=== PATIENT | male | born 1960 | race Caucasian/White ===

== ENCOUNTER 2018-03-06 02:50 | Inpatient (IN) | payer OTHER ==
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
[2018-03-06] MEDS ORDERED: morphine SULFATE 4 MG/ML VIAL ONE ×2 (04:51→09:54)
[2018-03-06] MEDS ORDERED: morphine CARPU-JECT 4 MG/1 ML DISP.SYRIN IVPUSH ONE (04:52)
[2018-03-06 05:23] LABS: EOS % 0.5 % (0-4.5); HEMOGLOBIN 12.8 GM/dL (11.7-16.9); LYMPH % 16.7 % (8-40); MCH 36.2 pg (25.7-33.7); MCHC 35.5 g/dl (32.0-35.9); MEAN CELL VOLUME 102.2 fl (80-96); MEAN PLT VOLUME 8.5 fl (7.5-11.1); MONO % 7.7 % (3.8-10.2); NEUT % 74.1 % (42.8-82.8); PLATELET COUNT 93 K/MM3 (134-434); RBC 3.52 M/mm3 (4.00-5.60); RDW 14.8 % (11.9-15.9); WHITE BLOOD COUNT 3.7 K/mm3 (4.0-10.0)
[2018-03-06 05:43] LABS: INR 1.36 (0.82-1.09); PROTHROMBIN TIME (PATIENT) 15.4 SEC (9.7-13.0)
[2018-03-06] MEDS ORDERED: TETANUS AND DIPHTHERIA TOXOID 0.5 ML DISP.SYRIN IM ONE (05:44)
[2018-03-06 05:48] LABS: ALBUMIN 2.5 g/dl (3.4-5.0); ALK PHOS 100 U/L (45-117); ANION GAP 8 (8-16); BILIRUBIN,TOTAL 1.3 mg/dL (0.2-1.0); BLOOD UREA NITROGEN 8 mg/dL (7-18); CALCIUM 7.7 mg/dL (8.5-10.1); CHLORIDE 110 mmol/L (98-107); CO2 25 mmol/L (21-32); CREATININE 0.7 mg/dL (0.7-1.3); GLUCOSE,RANDOM 111 mg/dL (74-106); POTASSIUM 3.9 mmol/L (3.5-5.1); SODIUM 143 mmol/L (136-145); TOT PROT 9.3 g/dl (6.4-8.2)
[2018-03-06 05:49] LABS: SGOT/AST 163 U/L (15-37); SGPT/ALT 68 U/L (12-78)
[2018-03-06] MEDS ORDERED: morphine SULFATE 4 MG/ML VIAL IVPUSH PRN (07:01)
[2018-03-06] MEDS ORDERED: FOLIC ACID INJECTION - 1 MG, THIAMINE HCL 100 MG, MULTIVIT INJECTION ADULT 10 ML in SOD... IVPB ONE (07:04)
[2018-03-06] MEDS ORDERED: PANTOPRAZOLE SODIUM 40 MG VIAL IVPUSH ONE (07:04)
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
[2018-03-06] MEDS ORDERED: PANTOPRAZOLE SODIUM 40 MG/100 ML BAG IVPB ONE (08:18)
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
--- NOTE | 2018-03-06 09:01 | PDOC ---
*Physical Exam - Vital Signs Last Vital Signs Temp Pulse Resp BP Pulse Ox 98.7 F 84 22 114/78 96 03/06/18 02:56 03/06/18 02:56 03/06/18 02:56 03/06/18 02:56 03/06/18 02:56 ED Treatment Course - LABORATORY CBC & Chemistry Diagram: 03/06/18 05:12 03/06/18 05:12 - ADDITIONAL ORDERS Additional order review: Laboratory Results 03/06/18 03/06/18 03/06/18 05:23 05:23 05:12 PT with INR 15.40 H INR 1.36 H Sodium 143 Potassium 3.9 Chloride 110 H Carbon Dioxide 25 Anion Gap 8 BUN 8 Creatinine 0.7 Creat Clearance w eGFR > 60 Random Glucose 111 H Calcium 7.7 L Total Bilirubin 1.3 H AST 163 H ALT 68 Alkaline Phosphatase 100 Total Protein 9.3 H Albumin 2.5 L Alcohol, Quantitative Blood Type A POSITIVE Antibody Screen Negative 03/06/18 05:04 PT with INR INR Sodium Potassium Chloride Carbon Dioxide Anion Gap BUN Creatinine Creat Clearance w eGFR Random Glucose Calcium Total Bilirubin AST ALT Alkaline Phosphatase Total Protein Albumin Alcohol, Quantitative 366.90 H* Blood Type Antibody Screen 03/06/18 05:12 RBC 3.52 L MCV 102.2 H MCHC 35.5 RDW 14.8 MPV 8.5 Neutrophils % 74.1 Lymphocytes % 16.7 Monocytes % 7.7 Eosinophils % 0.5 Basophils % 1.0 - Medications Given in the ED: ED Medications Discontinued Medications Generic Name Dose Route Start Last Admin Trade Name Freq PRN Reason Stop Dose Admin Morphine Sulfate 4 mg 03/06/18 04:52 03/06/18 05:11 Morphine Injection - IVPUSH 03/06/18 04:53 4 mg ONCE ONE Administration Pantoprazole Sodium 40 mg 03/06/18 07:04 03/06/18 08:22 Protonix Iv IVPUSH 03/06/18 07:05 40 mg ONCE ONE Administration Tetanus/Diphtheria Toxoids Adsorbed 0.5 ml 03/06/18 05:44 03/06/18 05:55 Decavac IM 03/06/18 05:45 0.5 ml .ONCE ONE Administration Medical Decision Making - Medical Decision Making 03/06/18 09:00 Patient was seen by Dr. Justice who feels patient does not require surgery for CT findings for appendicitis as patient's abdominal exam was not suggestive of appendicitis nor did he have a white count. Patient will be admitted and he will follow pt once admitted. *DC/Admit/Observation/Transfer Diagnosis at time of Disposition: Acute appendicitis Hip fracture Qualifiers: Encounter type: initial encounter Fracture type: closed Laterality: right Qualified Code(s): S72.001A - Fracture of unspecified part of neck of right femur, initial encounter for closed fracture Contusion of elbow, right Qualifiers: Encounter type: initial encounter Qualified Code(s): S50.01XA - Contusion of right elbow, initial encounter - Discharge Dispostion Condition at time of disposition: Guarded - Referrals - Patient Instructions - Post Discharge Activity
[2018-03-06] MEDS ORDERED: chlordiazePOXIDE HCL 25 MG CAPSULE PO ONE (09:05)
[2018-03-06] MEDS ORDERED: chlordiazePOXIDE HCL 25 MG CAPSULE PO PRN (09:05)
[2018-03-06] MEDS ORDERED: oxyCODONE HCL 5 MG TABLET PO PRN (09:10)
[2018-03-06 09:16] LABS: COCAINE, UR NEGATIVE ng/ml (CUTOFF=300); METHADONE, UR NEGATIVE ng/ml (CUTOFF=300); OPIATES, URI POSITIVE ng/ml (CUTOFF=300); PHENCYCLIDINE,URINE NEGATIVE ng/ml (CUTOFF=25); URINE AMPHETAMINES NEGATIVE ng/ml (CUTOFF=500); URINE BARBITURATES NEGATIVE ng/ml (CUTOFF=200); URINE BENZODIAZEPINES NEGATIVE ng/ml (CUTOFF=200)
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
[2018-03-06] MEDS ORDERED: chlordiazePOXIDE HCL 25 MG CAPSULE ONE ×2 (09:50→12:28)
[2018-03-06] MEDS: SODIUM CHLORIDE 1,000 ML IV SCH (10:12)
[2018-03-06] MEDS: morphine SULFATE 4 MG/ML VIAL IVPUSH PRN ×3 (10:12→18:00)
[2018-03-06 11:43] LABS: MAGNESIUM 1.8 mg/dL (1.8-2.4); PHOSPHOROUS 3.5 mg/dL (2.5-4.9)
[2018-03-06] MEDS: chlordiazePOXIDE HCL 25 MG CAPSULE PO SCH ×3 (12:33→22:05)
[2018-03-06] MEDS: HEPARIN NA (PORCINE) 5,000 UNITS/ML 1ML VIAL SQ SCH ×2 (14:17→22:06)
--- NOTE | 2018-03-06 14:30 | EKG ---
Test Reason : Blood Pressure : / mmHG Vent. Rate : 114 BPM Atrial Rate : 114 BPM P-R Int : 138 ms QRS Dur : 080 ms QT Int : 338 ms P-R-T Axes : 064 026 059 degrees QTc Int : 465 ms SINUS TACHYCARDIA OTHERWISE NORMAL ECG NO PREVIOUS ECGS AVAILABLE Confirmed by MD Giuliano, Ulysses ([id number]) on 03/06/2018 2:29:55 PM Referred By: Confirmed By:Ulysses Nobles MD
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
[2018-03-06 15:44] VITALS: BMI 22.6
[2018-03-06] MEDS ORDERED: PT OWN MED DRAWER 7, Y5N ONE (21:28)
[2018-03-07] MEDS: chlordiazePOXIDE HCL 25 MG CAPSULE PO SCH (05:03)
[2018-03-07] MEDS: SODIUM CHLORIDE 1,000 ML IV SCH ×2 (05:13→09:23)
[2018-03-07] MEDS: HEPARIN NA (PORCINE) 5,000 UNITS/ML 1ML VIAL SQ SCH (05:14)
[2018-03-07 08:16] LABS: BASO % 0.7 % (0-2.0); EOS % 0.3 % (0-4.5); HEMATOCRIT 31.2 % (35.4-49); LYMPH % 18.7 % (8-40); MCH 36.4 pg (25.7-33.7); MCHC 35.3 g/dl (32.0-35.9); MEAN PLT VOLUME 8.1 fl (7.5-11.1); NEUT % 68.3 % (42.8-82.8); PLATELET COUNT 58 K/MM3 (134-434); RBC 3.03 M/mm3 (4.00-5.60); RDW 14.6 % (11.9-15.9); WHITE BLOOD COUNT 4.1 K/mm3 (4.0-10.0)
[2018-03-07 08:35] LABS: CHLORIDE 107 mmol/L (98-107); POTASSIUM 3.7 mmol/L (3.5-5.1); SODIUM 140 mmol/L (136-145)
[2018-03-07 08:47] LABS: ALBUMIN 2.3 g/dl (3.4-5.0); ALK PHOS 80 U/L (45-117); ANION GAP 7 (8-16); BILIRUBIN,TOTAL 2.3 mg/dL (0.2-1.0); BLOOD UREA NITROGEN 10 mg/dL (7-18); CALCIUM 7.8 mg/dL (8.5-10.1); CO2 26 mmol/L (21-32); CREATININE 0.6 mg/dL (0.7-1.3); MAGNESIUM 1.6 mg/dL (1.8-2.4); PHOSPHOROUS 2.1 mg/dL (2.5-4.9); TOT PROT 8.2 g/dl (6.4-8.2)
[2018-03-07 08:48] LABS: GLUCOSE,RANDOM 106 mg/dL (74-106); SGOT/AST 121 U/L (15-37); SGPT/ALT 51 U/L (12-78)
[2018-03-07] MEDS ORDERED: NAPH,MB-DB/K PH,MBDB POWDER PACKET PO ONE (09:16)
[2018-03-07] MEDS ORDERED: THIAMINE HCL 100 MG TABLET (FP) PO SCH (10:00)
[2018-03-07] MEDS ORDERED: MAGNESIUM 1GM/D5W 100ML - 100 ML IVPB IVPB ONE (10:30)
[2018-03-07] MEDS: MAGNESIUM 1GM/D5W 100ML - 100 ML IVPB IVPB ONE ×2 (10:32→10:40)
--- NOTE | 2018-03-07 10:35 | EKG ---
Test Reason : Blood Pressure : / mmHG Vent. Rate : 088 BPM Atrial Rate : 088 BPM P-R Int : 136 ms QRS Dur : 088 ms QT Int : 388 ms P-R-T Axes : 063 007 026 degrees QTc Int : 469 ms NORMAL SINUS RHYTHM NORMAL ECG WHEN COMPARED WITH ECG OF 06-MAR-2018 07:08, NONSPECIFIC T WAVE ABNORMALITY NOW EVIDENT IN INFERIOR LEADS Confirmed by ULISES VERONICA MD ([id number]) on 03/07/2018 10:35:06 AM Referred By: Confirmed By:ULISES VERONICA MD
[2018-03-07] MEDS ORDERED: chlordiazePOXIDE HCL 25 MG CAPSULE PO SCH ×2 (11:00→17:00)
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
[2018-03-07] MEDS ORDERED: MIDAZOLAM HCL 2 MG/2 ML SINGLE DOSE VIAL ONE (14:21)
[2018-03-07] MEDS ORDERED: LIDOCAINE HCL/PF 2% SDV 5ML VIAL ONE (14:47)
[2018-03-07] MEDS ORDERED: PROPOFOL 20 ML ONE (14:48)
[2018-03-07] MEDS ORDERED: ceFAZolin SODIUM 1 GM VIAL ONE ×2 (14:54→22:25)
[2018-03-07] MEDS ORDERED: ceFAZolin SODIUM 1 GM VIAL IVPB ONE (14:54)
[2018-03-07] MEDS ORDERED: DEXAMETHASONE SOD PHOSPHATE 4 MG/1 ML VIAL ONE (14:57)
--- NOTE | 2018-03-07 15:24 | OP ---
Operative Note - Note: Operative Date: 03/07/18 Pre-Operative Diagnosis: R IT HIP FX Operation: R GAMMA NAIL Post-Operative Diagnosis: Same as Pre-op Surgeon: Paulie Castro Anesthesia: General Estimated Blood Loss (mls): 250 Operative Report Dictated: Yes
[2018-03-07] MEDS ORDERED: LACTATED RINGERS SOLUTION 1,000 ML IV SCH ×2 (15:30→16:21)
--- NOTE | 2018-03-07 15:53 | PN ---
Physical Exam: SUBJECTIVE: Patient seen and examined at bedside. Yesterday, at 6pm, pt c/o R hip pain and received oxycodone, morphine IVP. At time, also with fine tremors, received librium. Overnight, pt AAOx 3 , with low grade temp ~100F at 6AM. Increased to 100.8F at ~10AM. Pt for OR today with Dr. Castro - gamma nail procedure. This AM, he denied JOHNSTON, fever, chills, SOB, or changes in urinary or bowel function. Only c/o pain in R hip upon movement. OBJECTIVE: Vital Signs Period Temp Pulse Resp BP Sys/Eubanks Pulse Ox Last 24 Hr 98.9 F-100.9 F 88-98 18-20 125-142/76-85 98 GENERAL: The patient is resting in bed, awake, alert, and fully oriented, in mild distress with RLE movement. HEAD: Normal with no signs of trauma. EYES: PERRL, extraocular movements intact, sclera anicteric, conjunctiva clear. No ptosis. ENT: Ears normal, nares patent, oropharynx clear without exudates, moist mucous membranes. NECK: Trachea midline, supple. LUNGS: Breath sounds equal, clear to auscultation bilaterally, no wheezes, no crackles, no accessory muscle use. HEART: Regular rate and rhythm, S1, S2 without murmur, rub or gallop. ABDOMEN: Soft, nontender, nondistended, normoactive bowel sounds, no guarding, no rebound, no hepatosplenomegaly, no masses. EXTREMITIES: 2+ posterior tibial pulses, warm, well-perfused, no edema. +R externally rotated, shortened LE NEUROLOGICAL: Cranial nerves II through XII grossly intact. Normal speech PSYCH: Normal mood, normal affect. SKIN: Warm, dry, normal turgor, no rashes noted Laboratory Results - last 24 hr 03/07/18 03/07/18 06:30 06:30 WBC 4.1 RBC 3.03 L Hgb 11.0 L D Hct 31.2 L MCV 103.0 H MCH 36.4 H MCHC 35.3 RDW 14.6 Plt Count 58 L D MPV 8.1 Neutrophils % 68.3 Lymphocytes % 18.7 Monocytes % 12.0 H Eosinophils % 0.3 Basophils % 0.7 Sodium 140 Potassium 3.7 Chloride 107 Carbon Dioxide 26 Anion Gap 7 L BUN 10 D Creatinine 0.6 L Creat Clearance w eGFR > 60 Random Glucose 106 Calcium 7.8 L Phosphorus 2.1 L D Magnesium 1.6 L Total Bilirubin 2.3 H D AST 121 H D ALT 51 D Alkaline Phosphatase 80 Total Protein 8.2 Albumin 2.3 L Active Medications Generic Name Dose Route Start Last Admin Trade Name Freq PRN Reason Stop Dose Admin Chlordiazepoxide HCl 25 mg 03/07/18 11:00 03/07/18 10:39 Librium - PO 03/08/18 05:01 25 mg [id number] KAYLEIGH Administration Chlordiazepoxide HCl 15 mg 03/08/18 11:00 Librium - PO 03/09/18 05:01 [id number] KAYLEIGH Chlordiazepoxide HCl 25 mg 03/06/18 09:05 Librium - PO 03/09/18 09:04 Q4H PRN WITHDRAWAL(CONT SUBST) Fentanyl 50 mcg 03/07/18 15:34 Sublimaze Injection - IVPUSH Q5M PRN PAIN-PACU ORDER X 4 DOSES ONLY Sodium Chloride 1,000 mls @ 75 mls/hr 03/06/18 09:15 03/07/18 09:23 Normal Saline - IV Not Given ASDIR [facility] Cefazolin Sodium 1 gm in 50 mls @ 100 mls/hr 03/07/18 23:00 Ancef 1 Gm Premixed Ivpb - IVPB 03/08/18 07:29 Q8H [facility] Lactated Ringer's 1,000 mls @ 75 mls/hr 03/07/18 15:30 Lactated Ringers Solution IV ASDIR [facility] Morphine Sulfate 4 mg 03/06/18 09:12 03/06/18 18:00 Morphine Sulfate IVPUSH 4 mg Q3H PRN Administration PAIN LEVEL 7 - 10 Oxycodone HCl 5 mg 03/06/18 09:10 03/06/18 13:20 Roxicodone - PO 5 mg Q4H PRN Administration PAIN LEVEL 1-5 Thiamine HCl 100 mg 03/07/18 10:00 03/07/18 10:39 Vitamin B1 - PO Not Given DAILY [facility] ASSESSMENT/PLAN: 57 y/o M with chronic EtOH abse, who presented to the ED after falling on his R hip. Pt was found to have an acute R femoral neck fx. #R displaced intertrochanteric fx after trauma -with prolonged Qtc 469 (latest; 03/07) - discussed with anesthesia team -Pt for surgery today with Dr. Castro- R IM gamma nail (PO Day 0). Has been completed -Continue to hold a/c after procedure (continue DVT PPX: L SCD) -Post op abx for 24 hrs: ancef 1gm q8h -IVF LR 75 cc/hr -Pain control: morphine 4mg IVP q3h PRN, roxicodone 5mg PO q4h PRN -NPO -Pt post op check tomorrow - OOB, flatus, etc. #Incidental dilated appendix (1.2cm) w/o abdominal sx -no need for surgical intervention at this time -will need surgical and GI f/u on d/c -will need repeat imaging as outpatient #alcohol intoxication -without current signs of withdrawal, CIWA 0 -continue to check Mg, Phosph -librium protocol to finish 03/09; currently receiving librium 25mg PO q6h -continue thiamine 100mg PO qd, folic 1mg PO qd #transaminitis -AST 121 (from 163), improving -monitor CMP #macrocytic anemia - possibly 2/2 nutritional deficit from chronic alcohol abuse -F/u folic acid level -F/u b12 #thrombocytopenia 2/2 BM suppression from chronic alc abuse -continue to monitor -level today 58k -avoid hep SQ #Hyphosphatemia -2.1; has been repleted with 1 pkt neutra-phosph #Hypomagnesemia -1.6; has been repleted with mg 1g #F/E/N IV LR 75 cc/hr Continue to monitor lytes, specifically phosph, Mg NPO currently #PPX DVT: L SCD do not use a/c after surgery and d/t thrombocytopenia #Dispo continued med-surg monitoring, post-op care Visit type - Emergency Visit Emergency Visit: No - New Patient This patient is new to me today: Yes Date on this admission: 03/07/18 - Critical Care Critical Care patient: No
[2018-03-07] MEDS ORDERED: chlordiazePOXIDE HCL 25 MG CAPSULE PO PRN (16:21)
[2018-03-07] MEDS ORDERED: FOLIC ACID 5 MG/1 ML SQ SCH ×2 (16:30)
--- NOTE | 2018-03-07 19:54 | SPEC ---
DATE OF OPERATION: 03/07/2018 PREOPERATIVE DIAGNOSIS: Right intertrochanteric hip fracture. POSTOPERATIVE DIAGNOSIS: Right intertrochanteric hip fracture. PROCEDURE: Right Gamma nailing. SURGICAL ATTENDING: Mariah Castro MD LOFTSMAN/WOMAN: KRYSTINA Morales ANESTHESIA: General with LMA. CLOSURE: A short Gamma nail with appropriate interlocking screws, 0 Vicryl fascia, 2-0 subcutaneous, luís to skin. ESTIMATED BLOOD LOSS: Approximately 250 mL. COMPLICATIONS: None. CONDITION: To Recovery in stable condition. DESCRIPTION OF THE PROCEDURE: The patient was taken to the operating room on March 07, 2018. IV Kefzol was administered prophylactically prior to the case. Anesthesia was administered by the anesthesiologist. The patient was then fastened to the fracture table with all prominences well padded. Excellent reduction of the fracture was confirmed in AP and lateral plane by use of fluoroscopy. The right hip area was then prepped and draped in the usual sterile fashion by use of a shower curtain. A small 2-cm longitudinal incision over the tip of the greater trochanter was incised, hemostasis achieved using Bovie cautery. Sharp dissection was carried through the fascia. A guidewire was drilled from the tip of the greater trochanter into the intramedullary canal past the fracture. This was directed by fluoroscopy in both the AP and lateral plane. This was overreamed with a proximal reamer. A short Gamma nail was then malleted down into place. Using the outrigger and a small stab incision laterally, a guidewire was drilled from the lateral aspect of the femur, through the reji, through the neck into the femoral head. Proper placement was confirmed in the AP and lateral plane by using the image intensifier. The guidewire was measured for length, reamed with a triple reamer, and then screwed with the appropriate-sized lag screw. With the traction removed, the compression device was used to compress the fracture. A set screw was placed from above in the dynamic fashion. Again using the outrigger and through a small stab incision distally, a distal hole was drilled, depth gauged and screwed with the appropriate length locking screw in the static hole. The outrigger was removed. The x-rays in the AP and lateral plane revealed excellent position of the hardware with excellent reduction of the fracture. All incisions were irrigated out with copious amounts of irrigation. The fascia was closed in 0 Vicryl, 2-0 subcutaneous, and luís to the skin. Sterile pressure dressing was applied, patient awakened from anesthesia and transferred to Recovery in stable condition. No complications. Estimated blood loss approximately 250 mL. MARIAH CASTRO M.D. AMNA/[id number]
[2018-03-07] MEDS: morphine SULFATE 4 MG/ML VIAL IVPUSH PRN (20:03)
[2018-03-07] MEDS ORDERED: DEXTROSE 5%-WATER - 50 ML IVPB ONE (22:25)
[2018-03-07] MEDS: CEFAZOLIN 1 GM in DEXTROSE 5%-WATER - 50 ML IVPB SCH (22:28)
[2018-03-07] MEDS: FOLIC ACID 1 MG TABLET (FP) PO SCH (22:34)
[2018-03-07] MEDS ORDERED: CEFAZOLIN 1 GM/D5W 1 GM/50 ML BAG IVPB SCH (23:00)
[2018-03-08] MEDS ORDERED: ceFAZolin SODIUM 1 GM VIAL ONE ×2 (05:45→15:10)
[2018-03-08] MEDS ORDERED: DEXTROSE 5%-WATER - 50 ML IVPB ONE ×2 (05:45→15:11)
[2018-03-08] MEDS: chlordiazePOXIDE HCL 25 MG CAPSULE PO SCH ×2 (06:02→11:39)
[2018-03-08] MEDS: CEFAZOLIN 1 GM in DEXTROSE 5%-WATER - 50 ML IVPB SCH ×2 (06:05→15:14)
[2018-03-08] MEDS: SODIUM CHLORIDE 1,000 ML IV SCH ×3 (07:44→21:09)
[2018-03-08 09:14] LABS: CHLORIDE 108 mmol/L (98-107); POTASSIUM 3.9 mmol/L (3.5-5.1); SODIUM 140 mmol/L (136-145)
[2018-03-08 09:21] LABS: ALBUMIN 1.9 g/dl (3.4-5.0); ALK PHOS 79 U/L (45-117); ANION GAP 6 (8-16); BILIRUBIN,TOTAL 2.2 mg/dL (0.2-1.0); BLOOD UREA NITROGEN 11 mg/dL (7-18); CALCIUM 7.4 mg/dL (8.5-10.1); CO2 26 mmol/L (21-32); CREATININE 0.7 mg/dL (0.7-1.3); GLUCOSE,RANDOM 129 mg/dL (74-106); MAGNESIUM 1.8 mg/dL (1.8-2.4); PHOSPHOROUS 2.3 mg/dL (2.5-4.9); SGOT/AST 80 U/L (15-37); SGPT/ALT 38 U/L (12-78); TOT PROT 7.3 g/dl (6.4-8.2)
[2018-03-08] MEDS: THIAMINE HCL 100 MG TABLET (FP) PO SCH (10:34)
[2018-03-08] MEDS: FOLIC ACID 1 MG TABLET (FP) PO SCH (10:34)
[2018-03-08] MEDS ORDERED: chlordiazePOXIDE 5 MG CAPSULE PO SCH (11:00)
[2018-03-08] MEDS ORDERED: NAPH,MB-DB/K PH,MBDB POWDER PACKET PO ONE (12:15)
[2018-03-08] MEDS ORDERED: MAGNESIUM 1GM/D5W 100ML - 100 ML IVPB IVPB ONE (12:15)
--- NOTE | 2018-03-08 15:30 | PN ---
Progress Note (short form) - Note Progress Note: POD #1 - s/p right hip gamma nail under general anesthesia. VSS. Pt. doing well, resting comfortably in bed. No complaints. No apparent anesthetic complications noted. Continue current care.
--- NOTE | 2018-03-08 15:36 | PN ---
Progress Note (short form) - Note Progress Note: Pt seen and examined. He is doing ok, stable, but c/o pain right hip. Teri reg diet. Voiding. AVSS H/H stable RLE is grossly NVI Good ROM at the right knee, ankle, foot, toes. Dressing with mild amount of serosanguinous discharge/drainage Imp Doing well s/p right Gamma Nail Rec DC planning P.T. for ambulation, PWB RLE
[2018-03-08] MEDS: oxyCODONE HCL 5 MG TABLET PO PRN (15:39)
--- NOTE | 2018-03-08 16:20 | PN ---
Physical Exam: SUBJECTIVE: Patient seen and examined at bedside. Overnight, R hip dressing with drainage. Today pt confused, asking which day of the week it was for orientation. Tolerating PO meds, regular diet. Voiding freely. Tremulous in upper extremities. Denies JOHNSTON, fever, chills, SOB, or changes in urinary function. OBJECTIVE: Vital Signs Period Temp Pulse Resp BP Sys/[place]anks Pulse Ox Last 24 Hr 98.0 F-99.2 F 78-103 15-20 103-146/70-98 96-99 GENERAL: The patient is confused ; AAO x2 , in no acute distress. HEAD: Normal with no signs of trauma. EYES: PERRL, extraocular movements intact, sclera anicteric, conjunctiva clear. ENT: Ears normal, nares patent NECK: Trachea midline, supple. LUNGS: Breath sounds equal, clear to auscultation bilaterally, no wheezes, no crackles, no accessory muscle use. HEART: Regular rate and rhythm, S1, S2 without murmur, rub or gallop. ABDOMEN: Soft, nontender, nondistended, normoactive bowel sounds, no guarding, no rebound EXTREMITIES: 2+ posterior tibial pulses, no edema. + RLE - surgical site with serosanguineous drainage, clean without erythema and edema surrounding area NEUROLOGICAL: Cranial nerves II through XII appear to be grossly intact. Normal speech PSYCH: Normal mood, normal affect. SKIN: Warm, dry, normal turgor Laboratory Results - last 24 hr 03/07/18 03/07/18 03/08/18 06:30 06:30 07:45 Sodium 140 Potassium 3.9 Chloride 108 H Carbon Dioxide 26 Anion Gap 6 L BUN 11 Creatinine 0.7 Creat Clearance w eGFR > 60 Random Glucose 129 H D Calcium 7.4 L Phosphorus 2.3 L Magnesium 1.8 Total Bilirubin 2.2 H AST 80 H D ALT 38 D Alkaline Phosphatase 79 Total Protein 7.3 Albumin 1.9 L Vitamin B12 785 Serum Folate 10 Active Medications Generic Name Dose Route Start Last Admin Trade Name Freq PRN Reason Stop Dose Admin Chlordiazepoxide HCl 25 mg 03/07/18 16:21 Librium - PO 03/09/18 09:04 Q4H PRN WITHDRAWAL(CONT SUBST) Chlordiazepoxide HCl 15 mg 03/08/18 17:00 Librium - PO 03/09/18 11:01 [id number] KAYLEIGH Fentanyl 50 mcg 03/07/18 15:34 Sublimaze Injection - IVPUSH Q5M PRN PAIN-PACU ORDER X 4 DOSES ONLY Folic Acid 1 mg 03/07/18 16:30 03/08/18 10:34 Folic Acid - PO 1 mg DAILY KAYLEIGH Administration Cefazolin Sodium 1 gm/ 50 mls @ 100 mls/hr 03/07/18 23:00 03/08/18 15:14 Dextrose IVPB 03/08/18 22:59 100 mls/hr Q8H KAYLEIGH Administration Sodium Chloride 1,000 mls @ 75 mls/hr 03/07/18 16:21 03/08/18 07:44 Normal Saline - IV 75 mls/hr ASDIR KAYLEIGH Administration Morphine Sulfate 4 mg 03/07/18 16:21 03/07/18 20:03 Morphine Sulfate IVPUSH 4 mg Q3H PRN Administration PAIN LEVEL 7 - 10 Oxycodone HCl 5 mg 03/07/18 16:21 03/08/18 15:39 Roxicodone - PO 5 mg Q4H PRN Administration PAIN LEVEL 1-5 Thiamine HCl 100 mg 03/08/18 10:00 03/08/18 10:34 Vitamin B1 - PO 100 mg DAILY KAYLEIGH Administration ASSESSMENT/PLAN: 57 y/o M with chronic EtOH abse, who presented to the ED after falling on his R hip. Pt was found to have an acute R femoral neck fx. #R displaced intertrochanteric fx after trauma - R IM gamma nail (PO Day 2) -Continuing to hold a/c after procedure (continue DVT PPX: L SCD) - as pt with thrombocytopenia awaiting next CBC -IVF NS 75 cc/hr -Pain control: morphine 4mg IVP q3h PRN, roxicodone 5mg PO q4h PRN -Tolerating regular diet -As per surgery recs, PT ambulation, wt bearing #Incidental dilated appendix (1.2cm) w/o abdominal sx -no need for surgical intervention at this time -will need surgical and GI f/u on d/c -repeat imaging as outpatient #alcohol withdrawal -with current signs of withdrawal, tremors. -continue to check Mg, Phosph -librium protocol to finish 03/09 -continue thiamine 100mg PO qd, folic 1mg PO qd #transaminitis-resolving #macrocytic anemia - possibly 2/2 nutritional deficit from chronic alcohol abuse. resolved -folic acid, B12 level - WNL #thrombocytopenia 2/2 BM suppression from chronic alc abuse -continue to monitor -f/u CBC tomorrow -avoid hep SQ for time being. continue SCD LLE #Hyphosphatemia -has been repleted with Naph packet #Hypomagnesemia -1.6; has been repleted with mag 1g #F/E/N IV NS 75 cc/hr Continue to monitor lytes, specifically phosph, Mg regular diet #PPX DVT: L SCD no a/c d/t thrombocytopenia. PPX when thrombocytopenia > 80k #Dispo post-op care Visit type - Emergency Visit Emergency Visit: No - New Patient This patient is new to me today: No - Critical Care Critical Care patient: No
[2018-03-08] MEDS: chlordiazePOXIDE 5 MG CAPSULE PO SCH ×2 (16:42→22:26)
[2018-03-08 16:59] LABS: BASO % 0.3 % (0-2.0); EOS % 0.2 % (0-4.5); HEMATOCRIT 25.8 % (35.4-49); HEMOGLOBIN 9.2 GM/dL (11.7-16.9); LYMPH % 10.1 % (8-40); MCHC 35.6 g/dl (32.0-35.9); MEAN CELL VOLUME 103.8 fl (80-96); MONO % 9.5 % (3.8-10.2); NEUT % 79.9 % (42.8-82.8); PLATELET COUNT 61 K/MM3 (134-434); RBC 2.48 M/mm3 (4.00-5.60); WHITE BLOOD COUNT 7.3 K/mm3 (4.0-10.0)
--- NOTE | 2018-03-08 17:27 | PN ---
Teaching Attending Note Name of Resident: Gaby Reese ATTENDING PHYSICIAN STATEMENT I saw and evaluated the patient. I reviewed the resident's note and discussed the case with the resident. I agree with the resident's findings and plan as documented. SUBJECTIVE: No fever or chills. pain is controlled. events over night noted to for confusion. Objective: NAD, MMM. CV: RRR. Lungs: CTAB Ext: tenderness in R groin and lateral hip. Edema over lateral aspect of R hip. RLE short and externally rotated. Dp 2+ b/l . no edema or erythema over R leg or LLE. Minimal tremor in hands Assessment/Plan: 57 y/o man with h/o ETOH dependence and no medical care who presented with R hip apaina fter trauma , he was found tohave R intertrochanteric Fx . 1- R intertrochanteric Fx, after trauma. S/p IM gamma nail . POD 1 - pain control - Chemical DVT PX if plt > 80 - PT 2- ETOH withdrawal , - cont folic and thiamine - Cont librium protocol 3- Transaminitis: likely form alcohol toxicity. - follow 4- replete Phos . follow electrolytes 5- Thrombocytopenia: likely due to BM suppression form alcohol use. monitor . hold off heparin. 6- Suggestive findings of appendicitis on CT: no GI signs or symptoms. will f/u with surgery and GI as out pt SCDs pending improvement in Plt number . PT eval
[2018-03-09] MEDS: chlordiazePOXIDE 5 MG CAPSULE PO SCH ×4 (05:56→22:37)
--- NOTE | 2018-03-09 08:56 | PN ---
<Gaby Reese - Last Filed: 03/09/18 17:06> Physical Exam: SUBJECTIVE: Patient seen and examined at bedside. No acute events overnight. Today, pt complaining of soreness. Otherwise, denies JOHNSTON, fever, chills, SOB, or changes in urinary or bowel function. Tolerating diet. Yesterday, seen by PT for chair exercises. OBJECTIVE: Vital Signs Period Temp Pulse Resp BP Sys/[place]anks Pulse Ox Last 24 Hr 98.8 F-99.7 F 8-91 20-20 105-111/68-72 96-97 GENERAL: The patient is awake, alert, and fully oriented, in no acute distress. HEAD: Normal with no signs of trauma. EYES: PERRL, extraocular movements intact, sclera anicteric, conjunctiva clear. No ptosis. ENT: Ears normal, nares patent, oropharynx clear without exudates, moist mucous membranes. NECK: Trachea midline, supple. LUNGS: Breath sounds equal, clear to auscultation bilaterally, no wheezes, no crackles, no accessory muscle use. HEART: Regular rate and rhythm, S1, S2 without murmur, rub or gallop. ABDOMEN: Soft, nontender, nondistended, normoactive bowel sounds, no guarding, no rebound, no hepatosplenomegaly, no masses. EXTREMITIES: 2+ posterior tibial pulses, warm, well-perfused, no edema. +RLE dressing with serosanguineous drainage. NEUROLOGICAL: Cranial nerves II through XII grossly intact. Normal speech. + decreased upper extremity tremulousness PSYCH: Normal mood, normal affect. SKIN: Warm, dry, normal turgor, no rashes or lesions noted Laboratory Results - last 24 hr 03/08/18 03/08/18 07:45 16:00 WBC 7.3 D RBC 2.48 L Hgb 9.2 L D Hct 25.8 L D MCV 103.8 H MCH 37.0 H MCHC 35.6 RDW 14.0 Plt Count 61 L MPV 9.0 D Neutrophils % 79.9 Lymphocytes % 10.1 D Monocytes % 9.5 Eosinophils % 0.2 Basophils % 0.3 Sodium 140 Potassium 3.9 Chloride 108 H Carbon Dioxide 26 Anion Gap 6 L BUN 11 Creatinine 0.7 Creat Clearance w eGFR > 60 Random Glucose 129 H D Calcium 7.4 L Phosphorus 2.3 L Magnesium 1.8 Total Bilirubin 2.2 H AST 80 H D ALT 38 D Alkaline Phosphatase 79 Total Protein 7.3 Albumin 1.9 L Active Medications Generic Name Dose Route Start Last Admin Trade Name Freq PRN Reason Stop Dose Admin Chlordiazepoxide HCl 25 mg 03/07/18 16:21 Librium - PO 03/09/18 09:04 Q4H PRN WITHDRAWAL(CONT SUBST) Chlordiazepoxide HCl 15 mg 03/08/18 17:00 03/09/18 05:56 Librium - PO 03/09/18 11:01 15 mg [id number] KAYLEIGH Administration Chlordiazepoxide HCl 10 mg 03/09/18 17:00 Librium - PO 03/10/18 16:59 [id number] KAYLEIGH Fentanyl 50 mcg 03/07/18 15:34 Sublimaze Injection - IVPUSH Q5M PRN PAIN-PACU ORDER X 4 DOSES ONLY Folic Acid 1 mg 03/07/18 16:30 03/08/18 10:34 Folic Acid - PO 1 mg DAILY KAYLEIGH Administration Sodium Chloride 1,000 mls @ 75 mls/hr 03/07/18 16:21 03/08/18 21:09 Normal Saline - IV 75 mls/hr ASDIR KAYLEIGH Administration Morphine Sulfate 4 mg 03/07/18 16:21 03/07/18 20:03 Morphine Sulfate IVPUSH 4 mg Q3H PRN Administration PAIN LEVEL 7 - 10 Oxycodone HCl 5 mg 03/07/18 16:21 03/08/18 15:39 Roxicodone - PO 5 mg Q4H PRN Administration PAIN LEVEL 1-5 Thiamine HCl 100 mg 03/08/18 10:00 03/08/18 10:34 Vitamin B1 - PO 100 mg DAILY KAYLEIGH Administration ASSESSMENT/PLAN: 57 y/o M with chronic EtOH abse, who presented to the ED after falling on his R hip. Pt was found to have an acute R femoral neck fx. #R displaced intertrochanteric fx after trauma - R IM gamma nail (PO Day 3) -Continuing to hold a/c after procedure (continue DVT PPX: L SCD) - as pt with thrombocytopenia (65k). d/w Dr. Gloria ibanez aspirin 81mg qd at this time -IVF NS 75 cc/hr -Pain control: morphine 4mg IVP q3h PRN, roxicodone 5mg PO q4h PRN -Tolerating regular diet -As per surgery recs, PT ambulation, wt bearing. #Incidental dilated appendix (1.2cm) w/o abdominal sx -no need for surgical intervention at this time -will need surgical and GI f/u on d/c -repeat imaging as outpatient #alcohol withdrawal -without current signs of withdrawal -continue to check Mg, Phosph -librium protocol to finish today (03/09) -continue thiamine 100mg PO qd, folic 1mg PO qd #transaminitis-resolving #macrocytic anemia - possibly 2/2 nutritional deficit from chronic alcohol abuse. resolved -folic acid, B12 level - WNL #thrombocytopenia 2/2 BM suppression from chronic alc abuse -continue to monitor -f/u CBC tomorrow -avoid hep SQ or aspirin for time being. continue SCD LLE #F/E/N IV NS 75 cc/hr Continue to monitor lytes regular diet #PPX DVT: L SCD no a/c d/t thrombocytopenia. PPX when thrombocytopenia > 80k #Dispo post-op care d/c planning; pt for SNF placement tomorrow (walked seven feet) Visit type - Emergency Visit Emergency Visit: No - New Patient This patient is new to me today: No - Critical Care Critical Care patient: No <Delta Loomis - Last Filed: 03/09/18 18:56> Physical Exam: Vital Signs Temperature 98.6 F 03/09/18 14:00 Pulse Rate 91 H 03/09/18 05:30 Respiratory Rate 20 03/09/18 05:30 Blood Pressure 105/68 03/09/18 05:30 O2 Sat by Pulse Oximetry (%) 97 03/08/18 21:00 CBCD WBC 5.6 K/mm3 (4.0-10.0) 03/09/18 07:45 RBC 2.40 M/mm3 (4.00-5.60) L 03/09/18 07:45 Hgb 9.0 GM/dL (11.7-16.9) L 03/09/18 07:45 Hct 25.1 % (35.4-49) L 03/09/18 07:45 MCV 104.6 fl (80-96) H 03/09/18 07:45 MCHC 35.8 g/dl (32.0-35.9) 03/09/18 07:45 RDW 13.7 % (11.9-15.9) 03/09/18 07:45 Plt Count 65 K/MM3 (134-434) L 03/09/18 07:45 MPV 9.3 fl (7.5-11.1) 03/09/18 07:45 CMP Sodium 140 mmol/L (136-145) 03/08/18 07:45 Potassium 3.9 mmol/L (3.5-5.1) 03/08/18 07:45 Chloride 108 mmol/L (98-107) H 03/08/18 07:45 Carbon Dioxide 26 mmol/L (21-32) 03/08/18 07:45 Anion Gap 6 (8-16) L 03/08/18 07:45 BUN 11 mg/dL (7-18) 03/08/18 07:45 Creatinine 0.7 mg/dL (0.7-1.3) 03/08/18 07:45 Creat Clearance w eGFR > 60 (>60) 03/08/18 07:45 Random Glucose 129 mg/dL (74-106) H D 03/08/18 07:45 Calcium 7.4 mg/dL (8.5-10.1) L 03/08/18 07:45 Total Bilirubin 2.2 mg/dL (0.2-1.0) H 03/08/18 07:45 AST 80 U/L (15-37) H D 03/08/18 07:45 ALT 38 U/L (12-78) D 03/08/18 07:45 Alkaline Phosphatase 79 U/L (45-117) 03/08/18 07:45 Total Protein 7.3 g/dl (6.4-8.2) 03/08/18 07:45 Albumin 1.9 g/dl (3.4-5.0) L 03/08/18 07:45 Current Medications Generic Name Dose Route Start Last Admin Trade Name Freq PRN Reason Stop Dose Admin Chlordiazepoxide HCl 10 mg 03/09/18 17:00 03/09/18 17:44 Librium - PO 03/10/18 16:59 10 mg [id number] KAYLEIGH Administration Fentanyl 50 mcg 03/07/18 15:34 Sublimaze Injection - IVPUSH Q5M PRN PAIN-PACU ORDER X 4 DOSES ONLY Folic Acid 1 mg 03/07/18 16:30 03/09/18 09:03 Folic Acid - PO 1 mg DAILY KAYLEIGH Administration Sodium Chloride 1,000 mls @ 75 mls/hr 03/07/18 16:21 03/09/18 16:14 Normal Saline - IV Not Given ASDIR [facility] Morphine Sulfate 4 mg 03/07/18 16:21 03/09/18 13:55 Morphine Sulfate IVPUSH 4 mg Q3H PRN Administration PAIN LEVEL 7 - 10 Oxycodone HCl 5 mg 03/07/18 16:21 03/08/18 15:39 Roxicodone - PO 5 mg Q4H PRN Administration PAIN LEVEL 1-5 Thiamine HCl 100 mg 03/08/18 10:00 03/09/18 09:03 Vitamin B1 - PO 100 mg DAILY KAYLEIGH Administration Home Medications Medication Instructions Recorded NK [No Known Home Medication] 03/06/18
[2018-03-09] MEDS: FOLIC ACID 1 MG TABLET (FP) PO SCH (09:03)
[2018-03-09] MEDS: THIAMINE HCL 100 MG TABLET (FP) PO SCH (09:03)
[2018-03-09 09:08] LABS: HEMATOCRIT 25.1 % (35.4-49); MCH 37.4 pg (25.7-33.7); MCHC 35.8 g/dl (32.0-35.9); MEAN CELL VOLUME 104.6 fl (80-96); MEAN PLT VOLUME 9.3 fl (7.5-11.1); PLATELET COUNT 65 K/MM3 (134-434); RDW 13.7 % (11.9-15.9); WHITE BLOOD COUNT 5.6 K/mm3 (4.0-10.0)
--- NOTE | 2018-03-09 09:19 | PN ---
Progress Note (short form) - Note Progress Note: Ortho Pt seen and examined s/p right IM gamma nail pod #2 Selected Entries 03/09/18 05:30 Temperature 99.7 F H Pulse Rate 91 H Respiratory 20 Rate Blood Pressure 105/68 Laboratory Tests 03/09/18 07:45 WBC Pending Hgb Pending Hct Pending Plt Count Pending dressing with slight saturation, calf soft, nt nvi a/p PT wbat dvt ppx pain control d/c planning
[2018-03-09] MEDS: morphine SULFATE 4 MG/ML VIAL IVPUSH PRN ×2 (09:20→13:55)
[2018-03-09] MEDS ORDERED: chlordiazePOXIDE 5 MG CAPSULE PO SCH (14:00)
[2018-03-09] MEDS: SODIUM CHLORIDE 1,000 ML IV SCH (16:14)
[2018-03-10] MEDS: chlordiazePOXIDE 5 MG CAPSULE PO SCH ×2 (06:00→11:36)
--- NOTE | 2018-03-10 09:29 | PN ---
Progress Note (short form) - Note Progress Note: Pt seen and examined. He is doing well s/p right hip ORIF. Less pain. Is doing P.T., can ambulate but progressing slowly. AVSS H/H dropping, but ok at 9.0/25.1 Overall pt doing well. Can DC/transfer from an orthopedic pov F/U with Dr Castro as an out pt in 1-2 weeks
[2018-03-10] MEDS: THIAMINE HCL 100 MG TABLET (FP) PO SCH (09:31)
[2018-03-10] MEDS: morphine SULFATE 4 MG/ML VIAL IVPUSH PRN (09:31)
[2018-03-10] MEDS: FOLIC ACID 1 MG TABLET (FP) PO SCH (09:31)
--- NOTE | 2018-03-10 09:58 | PN ---
Teaching Attending Note Name of Resident: Gaby Reese ATTENDING PHYSICIAN STATEMENT I saw and evaluated the patient. I reviewed the resident's note and discussed the case with the resident. I agree with the resident's findings and plan as documented. SUBJECTIVE: Patient is feeling better with no acute distress. OBJECTIVE: Vital Signs Temperature 99.5 F 03/10/18 06:00 Pulse Rate 91 H 03/10/18 06:00 Respiratory Rate 20 03/10/18 06:00 Blood Pressure 120/77 03/10/18 06:00 O2 Sat by Pulse Oximetry (%) 96 03/09/18 21:00 CBCD WBC 5.6 K/mm3 (4.0-10.0) 03/09/18 07:45 RBC 2.40 M/mm3 (4.00-5.60) L 03/09/18 07:45 Hgb 9.0 GM/dL (11.7-16.9) L 03/09/18 07:45 Hct 25.1 % (35.4-49) L 03/09/18 07:45 MCV 104.6 fl (80-96) H 03/09/18 07:45 MCHC 35.8 g/dl (32.0-35.9) 03/09/18 07:45 RDW 13.7 % (11.9-15.9) 03/09/18 07:45 Plt Count 65 K/MM3 (134-434) L 03/09/18 07:45 MPV 9.3 fl (7.5-11.1) 03/09/18 07:45 CMP Sodium 140 mmol/L (136-145) 03/08/18 07:45 Potassium 3.9 mmol/L (3.5-5.1) 03/08/18 07:45 Chloride 108 mmol/L (98-107) H 03/08/18 07:45 Carbon Dioxide 26 mmol/L (21-32) 03/08/18 07:45 Anion Gap 6 (8-16) L 03/08/18 07:45 BUN 11 mg/dL (7-18) 03/08/18 07:45 Creatinine 0.7 mg/dL (0.7-1.3) 03/08/18 07:45 Creat Clearance w eGFR > 60 (>60) 03/08/18 07:45 Random Glucose 129 mg/dL (74-106) H D 03/08/18 07:45 Calcium 7.4 mg/dL (8.5-10.1) L 03/08/18 07:45 Total Bilirubin 2.2 mg/dL (0.2-1.0) H 03/08/18 07:45 AST 80 U/L (15-37) H D 03/08/18 07:45 ALT 38 U/L (12-78) D 03/08/18 07:45 Alkaline Phosphatase 79 U/L (45-117) 03/08/18 07:45 Total Protein 7.3 g/dl (6.4-8.2) 03/08/18 07:45 Albumin 1.9 g/dl (3.4-5.0) L 03/08/18 07:45 Current Medications Generic Name Dose Route Start Last Admin Trade Name Freq PRN Reason Stop Dose Admin Chlordiazepoxide HCl 10 mg 03/09/18 17:00 03/10/18 06:00 Librium - PO 03/10/18 16:59 10 mg [id number] KAYLEIGH Administration Fentanyl 50 mcg 03/07/18 15:34 Sublimaze Injection - IVPUSH Q5M PRN PAIN-PACU ORDER X 4 DOSES ONLY Folic Acid 1 mg 03/07/18 16:30 03/10/18 09:31 Folic Acid - PO 1 mg DAILY KAYLEIGH Administration Sodium Chloride 1,000 mls @ 75 mls/hr 03/07/18 16:21 03/09/18 16:14 Normal Saline - IV Not Given ASDIR KAYLEIGH Morphine Sulfate 4 mg 03/07/18 16:21 03/10/18 09:31 Morphine Sulfate IVPUSH 4 mg Q3H PRN Administration PAIN LEVEL 7 - 10 Oxycodone HCl 5 mg 03/07/18 16:21 03/08/18 15:39 Roxicodone - PO 5 mg Q4H PRN Administration PAIN LEVEL 1-5 Thiamine HCl 100 mg 03/08/18 10:00 03/10/18 09:31 Vitamin B1 - PO 100 mg DAILY KAYLEIGH Administration Home Medications Medication Instructions Recorded NK [No Known Home Medication] 03/06/18 PE: Per resident's note ASSESSMENT AND PLAN: 57 y/o man with h/o ETOH dependence and no medical care who presented with R hip pain after trauma , he was found to have R intertrochanteric Fx . # POD #2 s/p right hip ORIF for R intertrochanteric Fx, post trauma. S/p IM gamma nail . pain control , Chemical DVT Px if plt > 80 , PT # ETOH withdrawal , cont folic and thiamine , Cont librium protocol # Transaminitis: improving , likely form alcohol toxicity. # Hyphophosph. follow electrolytes , will give 15mmole of IV over 4hrs. # Thrombocytopenia: likely due to BM suppression form alcohol use. monitor . hold off heparin. # Suggestive findings of appendicitis on CT: no GI signs or symptoms. will f/u with surgery and GI as out pt DVT Px: Platelets are 65K, contraindicated , SCDs for now PT eval Dc planning
--- NOTE | 2018-03-10 16:22 | PN ---
Physical Exam: SUBJECTIVE: Patient seen and examined at bedside. States that he still feels sore today, but much improved from yesterday. OOB into chair, has been seen by PT. Denies JOHNSTON, fever, chills, SOB, or changes in urinary or bowel function. OBJECTIVE: Vital Signs Period Temp Pulse Resp BP Sys/[place] Pulse Ox Last 24 Hr 99 F-99.9 F 90-108 20-22 104-120/61-77 96 GENERAL: The patient is awake, alert, and fully oriented, in no acute distress. Sitting up in chair HEAD: Normal with no signs of trauma. EYES: PERRL, extraocular movements intact, sclera anicteric, conjunctiva clear. ENT: Ears normal, nares patent, oropharynx clear without exudates, moist mucous membranes. NECK: Trachea midline, supple. LUNGS: Breath sounds equal, clear to auscultation bilaterally, no wheezes, no crackles, no accessory muscle use. HEART: Regular rate and rhythm, S1, S2 without murmur, rub or gallop. ABDOMEN: Soft, nontender, nondistended, normoactive bowel sounds, no guarding, no rebound, no hepatosplenomegaly, no masses. EXTREMITIES: 2+ posterior tibial pulses, warm, well-perfused, no edema. +RLE dressing with serosanguineous drainage. NEUROLOGICAL: Cranial nerves II through XII grossly intact. Normal speech. + decreased upper extremity tremulousness PSYCH: Normal mood, normal affect. SKIN: Warm, dry, normal turgor Active Medications Generic Name Dose Route Start Last Admin Trade Name Freq PRN Reason Stop Dose Admin Chlordiazepoxide HCl 10 mg 03/09/18 17:00 03/10/18 11:36 Librium - PO 03/10/18 16:59 10 mg [id number] KAYLEIGH Administration Fentanyl 50 mcg 03/07/18 15:34 Sublimaze Injection - IVPUSH Q5M PRN PAIN-PACU ORDER X 4 DOSES ONLY Folic Acid 1 mg 03/07/18 16:30 03/10/18 09:31 Folic Acid - PO 1 mg DAILY KAYLEIGH Administration Sodium Chloride 1,000 mls @ 75 mls/hr 03/07/18 16:21 03/09/18 16:14 Normal Saline - IV Not Given ASDIR KAYLEIGH Morphine Sulfate 4 mg 03/07/18 16:21 03/10/18 09:31 Morphine Sulfate IVPUSH 4 mg Q3H PRN Administration PAIN LEVEL 7 - 10 Oxycodone HCl 5 mg 03/07/18 16:21 03/08/18 15:39 Roxicodone - PO 5 mg Q4H PRN Administration PAIN LEVEL 1-5 Thiamine HCl 100 mg 03/08/18 10:00 03/10/18 09:31 Vitamin B1 - PO 100 mg DAILY KAYLEIGH Administration ASSESSMENT/PLAN: 57 y/o M with chronic EtOH abse, who presented to the ED after falling on his R hip. Pt was found to have an acute R femoral neck fx. #R displaced intertrochanteric fx after trauma - R IM gamma nail (PO Day 4) -Continuing to hold a/c after procedure (continue DVT PPX: L SCD) - as pt with thrombocytopenia (65k). d/w Dr. Gloria ibanez aspirin 81mg qd at this time -IVF NS 75 cc/hr -Pain control: morphine 4mg IVP q3h PRN, roxicodone 5mg PO q4h PRN -Tolerating regular diet -ambulating - 25 feet today, improved pain tolerance #Incidental dilated appendix (1.2cm) w/o abdominal sx -no need for surgical intervention at this time -will need surgical and GI f/u on d/c -repeat imaging as outpatient #alcohol withdrawal -without current signs of withdrawal -continue to check Mg, Phosph -librium protocol to finish today (03/10) -continue thiamine 100mg PO qd, folic 1mg PO qd #transaminitis-resolving #macrocytic anemia - possibly 2/2 nutritional deficit from chronic alcohol abuse. resolved -folic acid, B12 level - WNL #thrombocytopenia 2/2 BM suppression from chronic alc abuse -continue to monitor -f/u CBC tomorrow -avoid hep SQ or aspirin for time being. continue SCD LLE #F/E/N IV NS 75 cc/hr Continue to monitor lytes regular diet #PPX DVT: L SCD no a/c d/t thrombocytopenia. PPX when thrombocytopenia > 80k #Dispo post-op care d/c planning; pt for placement tomorrow - SNF , needs rehab. awaiting insurance authorization Visit type - Emergency Visit Emergency Visit: No - New Patient This patient is new to me today: No - Critical Care Critical Care patient: No
[2018-03-10] MEDS: oxyCODONE HCL 5 MG TABLET PO PRN (18:11)
[2018-03-10] MEDS ORDERED: POTASSIUM PHOSPHATE 15 MM in SODIUM CHLORIDE 250 ML IVPB ONE (18:30)
[2018-03-11] MEDS: oxyCODONE HCL 5 MG TABLET PO PRN ×2 (03:34→11:52)
[2018-03-11 07:41] LABS: BASO % 0.4 % (0-2.0); HEMATOCRIT 25.9 % (35.4-49); HEMOGLOBIN 9.1 GM/dL (11.7-16.9); MCH 36.6 pg (25.7-33.7); MEAN CELL VOLUME 104.7 fl (80-96); MONO % 15.6 % (3.8-10.2); PLATELET COUNT 91 K/MM3 (134-434); RBC 2.48 M/mm3 (4.00-5.60); RDW 13.7 % (11.9-15.9); WHITE BLOOD COUNT 4.5 K/mm3 (4.0-10.0)
[2018-03-11] MEDS: THIAMINE HCL 100 MG TABLET (FP) PO SCH (09:52)
[2018-03-11] MEDS: FOLIC ACID 1 MG TABLET (FP) PO SCH (09:52)
[2018-03-11] MEDS ORDERED: ACETAMINOPHEN 500 MG TABLET (FP) PO ONE (14:00)
--- NOTE | 2018-03-11 16:03 | PN ---
<Gaby Reese - Last Filed: 03/11/18 16:07> Physical Exam: SUBJECTIVE: Patient seen and examined at bedside. No acute events overnight. Resting comfortably this AM, c/o soreness, however with increased ROM in lower extremities. Denies JOHNSTON, chills, SOB, chest pain or pressure. OBJECTIVE: Vital Signs Period Temp Pulse Resp BP Sys/E[place]anks Pulse Ox Last 24 Hr 98.7 F-100.0 F 94-109 18-20 111-128/69-77 97 GENERAL: The patient is awake, alert, and fully oriented, in no acute distress. Sitting in bed HEAD: Normal with no signs of trauma. EYES: PERRL, extraocular movements intact, sclera anicteric ENT: Ears normal, nares patent, oropharynx clear without exudates, moist mucous membranes. NECK: Trachea midline, supple. LUNGS: Breath sounds equal, clear to auscultation bilaterally, no wheezes, no crackles, no accessory muscle use. HEART: Regular rate and rhythm, S1, S2 without murmur, rub or gallop. ABDOMEN: Soft, nontender, nondistended, normoactive bowel sounds, no guarding, no rebound, no masses. EXTREMITIES: 2+ posterior tibial pulses, warm, well-perfused, no edema. +RLE dressing with mild serosanguineous drainage. NEUROLOGICAL: Cranial nerves II through XII grossly intact. Normal speech. PSYCH: Normal mood, normal affect. SKIN: Warm, dry, normal turgor Laboratory Results - last 24 hr 03/11/18 06:30 WBC 4.5 RBC 2.48 L Hgb 9.1 L Hct 25.9 L MCV 104.7 H MCH 36.6 H MCHC 35.0 RDW 13.7 Plt Count 91 L D MPV 8.0 D Neutrophils % 67.0 Lymphocytes % 14.0 D Monocytes % 15.6 H Eosinophils % 3.0 D Basophils % 0.4 Active Medications Generic Name Dose Route Start Last Admin Trade Name Freq PRN Reason Stop Dose Admin Acetaminophen 500 mg 03/11/18 14:01 Tylenol - PO Q6H PRN FEVER Folic Acid 1 mg 03/07/18 16:30 03/11/18 09:52 Folic Acid - PO 1 mg DAILY KAYLEIGH Administration Morphine Sulfate 2 mg 03/11/18 14:01 Morphine Sulfate IVPUSH Q4H PRN PAIN LEVEL 7 - 10 Thiamine HCl 100 mg 03/08/18 10:00 03/11/18 09:52 Vitamin B1 - PO 100 mg DAILY KAYLEIGH Administration ASSESSMENT/PLAN: 57 y/o M with chronic EtOH abuse, who presented to the ED after falling on his R hip. Pt was found to have an acute R femoral neck fx. #R displaced intertrochanteric fx after trauma - R IM gamma nail (PO Day 5) -Continuing to hold a/c after procedure (continue DVT PPX: L SCD) - as pt with thrombocytopenia (91k). d/w Dr. Castro no aspirin 81mg qd at this time -IVF has been d/c -Pain control: morphine 2mg IVP q4h PRN -Tylenol 500mg PO q6h PRN for fever/pain -Tolerating regular diet -continue work with PT #Incidental dilated appendix (1.2cm) w/o abdominal sx -no need for surgical intervention at this time -will need surgical and GI f/u on d/c -repeat imaging as outpatient #alcohol withdrawal -without current signs of withdrawal -continue to check Mg, Phosph -librium protocol complete (03/10) -continue thiamine 100mg PO qd, folic 1mg PO qd #transaminitis-resolving #macrocytic anemia - possibly 2/2 nutritional deficit from chronic alcohol abuse. resolved -folic acid, B12 level - WNL #thrombocytopenia 2/2 BM suppression from chronic alc abuse -continue to monitor; improved 91k -f/u CBC tomorrow -avoid hep SQ or aspirin for time being. continue SCD LLE #F/E/N IV NS 75 cc/hr Continue to monitor lytes regular diet #PPX DVT: L SCD no a/c d/t thrombocytopenia. Once level improves consistently - a/ c #Dispo post-op care d/c planning; pt for placement tomorrow - SNF , needs rehab. awaiting insurance authorization Visit type - Emergency Visit Emergency Visit: No - New Patient This patient is new to me today: No - Critical Care Critical Care patient: No <Delta Loomis - Last Filed: 03/11/18 19:11> Physical Exam: Patient is waiting for insurance approval for rehab. having low grade fever, will encourage incentive spirometer. Vital Signs Temperature 100.0 F H 03/11/18 14:00 Pulse Rate 95 H 03/11/18 14:00 Respiratory Rate 20 03/11/18 14:00 Blood Pressure 127/72 03/11/18 14:00 O2 Sat by Pulse Oximetry (%) 96 03/11/18 09:00 CBCD WBC 4.5 K/mm3 (4.0-10.0) 03/11/18 06:30 RBC 2.48 M/mm3 (4.00-5.60) L 03/11/18 06:30 Hgb 9.1 GM/dL (11.7-16.9) L 03/11/18 06:30 Hct 25.9 % (35.4-49) L 03/11/18 06:30 MCV 104.7 fl (80-96) H 03/11/18 06:30 MCHC 35.0 g/dl (32.0-35.9) 03/11/18 06:30 RDW 13.7 % (11.9-15.9) 03/11/18 06:30 Plt Count 91 K/MM3 (134-434) L D 03/11/18 06:30 MPV 8.0 fl (7.5-11.1) D 03/11/18 06:30 CMP Sodium 140 mmol/L (136-145) 03/08/18 07:45 Potassium 3.9 mmol/L (3.5-5.1) 03/08/18 07:45 Chloride 108 mmol/L (98-107) H 03/08/18 07:45 Carbon Dioxide 26 mmol/L (21-32) 03/08/18 07:45 Anion Gap 6 (8-16) L 03/08/18 07:45 BUN 11 mg/dL (7-18) 03/08/18 07:45 Creatinine 0.7 mg/dL (0.7-1.3) 03/08/18 07:45 Creat Clearance w eGFR > 60 (>60) 03/08/18 07:45 Random Glucose 129 mg/dL (74-106) H D 03/08/18 07:45 Calcium 7.4 mg/dL (8.5-10.1) L 03/08/18 07:45 Total Bilirubin 2.2 mg/dL (0.2-1.0) H 03/08/18 07:45 AST 80 U/L (15-37) H D 03/08/18 07:45 ALT 38 U/L (12-78) D 03/08/18 07:45 Alkaline Phosphatase 79 U/L (45-117) 03/08/18 07:45 Total Protein 7.3 g/dl (6.4-8.2) 03/08/18 07:45 Albumin 1.9 g/dl (3.4-5.0) L 03/08/18 07:45
[2018-03-11] MEDS: ACETAMINOPHEN 500 MG TABLET (FP) PO PRN (20:52)
[2018-03-12 08:29] LABS: BASO % 0.4 % (0-2.0); EOS % 2.5 % (0-4.5); HEMATOCRIT 28.9 % (35.4-49); HEMOGLOBIN 10.2 GM/dL (11.7-16.9); LYMPH % 12.7 % (8-40); MCH 36.9 pg (25.7-33.7); MCHC 35.3 g/dl (32.0-35.9); MEAN CELL VOLUME 104.6 fl (80-96); MONO % 15.4 % (3.8-10.2); PLATELET COUNT 118 K/MM3 (134-434); RBC 2.76 M/mm3 (4.00-5.60); RDW 13.8 % (11.9-15.9); WHITE BLOOD COUNT 5.4 K/mm3 (4.0-10.0)
[2018-03-12] MEDS: THIAMINE HCL 100 MG TABLET (FP) PO SCH (09:18)
[2018-03-12] MEDS: morphine SULFATE 4 MG/ML VIAL IVPUSH PRN ×3 (09:19→21:31)
[2018-03-12] MEDS: FOLIC ACID 1 MG TABLET (FP) PO SCH (09:19)
[2018-03-12] MEDS: ACETAMINOPHEN 500 MG TABLET (FP) PO PRN (15:09)
--- NOTE | 2018-03-12 16:15 | PN ---
Progress Note (short form) - Note Progress Note: Patient is comfortable , with no acute distress. Vital Signs Temperature 100.2 F H 03/12/18 14:28 Pulse Rate 106 H 03/12/18 14:28 Respiratory Rate 20 03/12/18 14:28 Blood Pressure 85/56 03/12/18 14:28 O2 Sat by Pulse Oximetry (%) 97 03/12/18 09:00 GENERAL: The patient is awake, alert, and fully oriented, in no acute distress. Sitting in bed HEAD: Normal with no signs of trauma. EYES: PERRL, extraocular movements intact, sclera anicteric ENT: Ears normal, nares patent, oropharynx clear without exudates, moist mucous membranes. NECK: Trachea midline, supple. LUNGS: Breath sounds equal, clear to auscultation bilaterally, no wheezes, no crackles, no accessory muscle use. HEART: Regular rate and rhythm, S1, S2 without murmur, rub or gallop. ABDOMEN: Soft, nontender, nondistended, normoactive bowel sounds, no guarding, no rebound, no masses. EXTREMITIES: 2+ posterior tibial pulses, warm, well-perfused, no edema. +RLE dressing NEUROLOGICAL: Cranial nerves II through XII grossly intact. Normal speech. PSYCH: Normal mood, normal affect. SKIN: Warm, dry, normal turgor CBCD WBC 5.4 K/mm3 (4.0-10.0) 03/12/18 07:45 RBC 2.76 M/mm3 (4.00-5.60) L 03/12/18 07:45 Hgb 10.2 GM/dL (11.7-16.9) L D 03/12/18 07:45 Hct 28.9 % (35.4-49) L 03/12/18 07:45 MCV 104.6 fl (80-96) H 03/12/18 07:45 MCHC 35.3 g/dl (32.0-35.9) 03/12/18 07:45 RDW 13.8 % (11.9-15.9) 03/12/18 07:45 Plt Count 118 K/MM3 (134-434) L D 03/12/18 07:45 MPV 8.0 fl (7.5-11.1) 03/12/18 07:45 CMP Sodium 140 mmol/L (136-145) 03/08/18 07:45 Potassium 3.9 mmol/L (3.5-5.1) 03/08/18 07:45 Chloride 108 mmol/L (98-107) H 03/08/18 07:45 Carbon Dioxide 26 mmol/L (21-32) 03/08/18 07:45 Anion Gap 6 (8-16) L 03/08/18 07:45 BUN 11 mg/dL (7-18) 03/08/18 07:45 Creatinine 0.7 mg/dL (0.7-1.3) 03/08/18 07:45 Creat Clearance w eGFR > 60 (>60) 03/08/18 07:45 Random Glucose 129 mg/dL (74-106) H D 03/08/18 07:45 Calcium 7.4 mg/dL (8.5-10.1) L 03/08/18 07:45 Total Bilirubin 2.2 mg/dL (0.2-1.0) H 03/08/18 07:45 AST 80 U/L (15-37) H D 03/08/18 07:45 ALT 38 U/L (12-78) D 03/08/18 07:45 Alkaline Phosphatase 79 U/L (45-117) 03/08/18 07:45 Total Protein 7.3 g/dl (6.4-8.2) 03/08/18 07:45 Albumin 1.9 g/dl (3.4-5.0) L 03/08/18 07:45 Current Medications Generic Name Dose Route Start Last Admin Trade Name [place] PRN Reason Stop Dose Admin Acetaminophen 500 mg 03/11/18 14:01 03/12/18 15:09 Tylenol - PO 500 mg Q6H PRN Administration FEVER Folic Acid 1 mg 03/07/18 16:30 03/12/18 09:19 Folic Acid - PO 1 mg DAILY KAYLEIGH Administration Morphine Sulfate 2 mg 03/11/18 14:01 03/12/18 13:14 Morphine Sulfate IVPUSH 2 mg Q4H PRN Administration PAIN LEVEL 7 - 10 Thiamine HCl 100 mg 03/08/18 10:00 03/12/18 09:18 Vitamin B1 - PO 100 mg DAILY KAYLEIGH Administration Home Medications Medication Instructions Recorded NK [No Known Home Medication] 03/06/18 ASSESSMENT AND PLAN: 57 y/o man with h/o ETOH dependence and no medical care who presented with R hip pain after trauma , he was found to have R intertrochanteric Fx . # POD #3 s/p right hip ORIF for R intertrochanteric Fx, post trauma. S/p IM gamma nail . pain control , Chemical DVT Px if plt > 80 , PT # ETOH withdrawal , cont folic and thiamine , librium protocol completed # Transaminitis: improving , from alcohol toxicity. # Hyphophosph. follow electrolytes , will give 15mmole of IV over 4hrs. # Thrombocytopenia: likely due to BM suppression form alcohol use. monitor . hold off heparin. # Suggestive findings of appendicitis on CT: no GI signs or symptoms. will f/u with surgery and GI as out pt DVT Px: Platelets are 65K, contraindicated , SCDs for now Waiting for rehab authorization Visit type - Emergency Visit Emergency Visit: Yes ED Registration Date: 03/06/18 Care time: The patient presented to the Emergency Department on the above date and was hospitalized for further evaluation of their emergent condition. - New Patient This patient is new to me today: No - Critical Care Critical Care patient: No - Discharge Referral Referred to [facility] Med P.C.: No
--- NOTE | 2018-03-12 23:57 | PN ---
Progress Note (short form) - Note Progress Note: Was called to see a patient who had an unwitnessed fall. On arriving in the room , the patient was lying on his back with hospital staff around him. Pt states he was getting out of bed to use his bedpan and his legs gave out. Pt was aaox3. Denies any LOC. Denies dizziness, sob. Pt has pain in his right hip from recent surgery but only with rom of RLE. No pain at rest. Pt adamantly denies hitting his head. Denies any trauma. No other pain. Plan: Head CT for unwitnessed fall b/l hip and pelvis xray
[2018-03-13] MEDS: FOLIC ACID 1 MG TABLET (FP) PO SCH (09:12)
[2018-03-13] MEDS: THIAMINE HCL 100 MG TABLET (FP) PO SCH (09:12)
[2018-03-13] MEDS: morphine SULFATE 4 MG/ML VIAL IVPUSH PRN ×2 (09:36→18:36)
[2018-03-13] MEDS ORDERED: ARTIFICIAL TEARS (POLYVINYL ALCOHOL 1.4%) OPTH DROPS OU PRN (11:03)
--- NOTE | 2018-03-13 18:20 | PN ---
Progress Note (short form) - Note Progress Note: Patient is comfrotable with no acute distress Vital Signs Temperature 99.2 F 03/13/18 15:21 Pulse Rate 102 H 03/13/18 15:21 Respiratory Rate 22 03/13/18 15:21 Blood Pressure 124/96 03/13/18 15:21 O2 Sat by Pulse Oximetry (%) 97 03/13/18 09:00 GENERAL: The patient is awake, alert, and fully oriented, in no acute distress. Sitting in bed HEAD: Normal with no signs of trauma. EYES: PERRL, extraocular movements intact, sclera anicteric ENT: Ears normal, oropharynx clear without exudates, moist mucous membranes. NECK: Trachea midline, supple. LUNGS: Breath sounds equal, clear to auscultation bilaterally, no wheezes, no crackles, no accessory muscle use. HEART: Regular rate and rhythm, S1, S2 without murmur, rub or gallop. ABDOMEN: Soft, nontender, nondistended, normoactive bowel sounds, no guarding, no rebound, no masses. EXTREMITIES: 2+ posterior tibial pulses, warm, well-perfused, no edema. +RLE dressing NEUROLOGICAL: Cranial nerves II through XII grossly intact. Normal speech. PSYCH: Normal mood, normal affect. SKIN: Warm, dry, normal turgor CBCD WBC 5.4 K/mm3 (4.0-10.0) 03/12/18 07:45 RBC 2.76 M/mm3 (4.00-5.60) L 03/12/18 07:45 Hgb 10.2 GM/dL (11.7-16.9) L D 03/12/18 07:45 Hct 28.9 % (35.4-49) L 03/12/18 07:45 MCV 104.6 fl (80-96) H 03/12/18 07:45 MCHC 35.3 g/dl (32.0-35.9) 03/12/18 07:45 RDW 13.8 % (11.9-15.9) 03/12/18 07:45 Plt Count 118 K/MM3 (134-434) L D 03/12/18 07:45 MPV 8.0 fl (7.5-11.1) 03/12/18 07:45 CMP Sodium 140 mmol/L (136-145) 03/08/18 07:45 Potassium 3.9 mmol/L (3.5-5.1) 03/08/18 07:45 Chloride 108 mmol/L (98-107) H 03/08/18 07:45 Carbon Dioxide 26 mmol/L (21-32) 03/08/18 07:45 Anion Gap 6 (8-16) L 03/08/18 07:45 BUN 11 mg/dL (7-18) 03/08/18 07:45 Creatinine 0.7 mg/dL (0.7-1.3) 03/08/18 07:45 Creat Clearance w eGFR > 60 (>60) 03/08/18 07:45 Random Glucose 129 mg/dL (74-106) H D 03/08/18 07:45 Calcium 7.4 mg/dL (8.5-10.1) L 03/08/18 07:45 Total Bilirubin 2.2 mg/dL (0.2-1.0) H 03/08/18 07:45 AST 80 U/L (15-37) H D 03/08/18 07:45 ALT 38 U/L (12-78) D 03/08/18 07:45 Alkaline Phosphatase 79 U/L (45-117) 03/08/18 07:45 Total Protein 7.3 g/dl (6.4-8.2) 03/08/18 07:45 Albumin 1.9 g/dl (3.4-5.0) L 03/08/18 07:45 Current Medications Generic Name Dose Route Start Last Admin Trade Name Freq PRN Reason Stop Dose Admin Acetaminophen 500 mg 03/11/18 14:01 03/12/18 15:09 Tylenol - PO 500 mg Q6H PRN Administration FEVER Artificial Tears 1 drop 03/13/18 11:03 Artificial Tears OU QID PRN DRY EYES Folic Acid 1 mg 03/07/18 16:30 03/13/18 09:12 Folic Acid - PO 1 mg DAILY KAYLEIGH Administration Morphine Sulfate 2 mg 03/11/18 14:01 03/13/18 09:36 Morphine Sulfate IVPUSH 2 mg Q4H PRN Administration PAIN LEVEL 7 - 10 Thiamine HCl 100 mg 03/08/18 10:00 03/13/18 09:12 Vitamin B1 - PO 100 mg DAILY KAYLEIGH Administration Home Medications Medication Instructions Recorded NK [No Known Home Medication] 03/06/18 ASSESSMENT AND PLAN: 57 y/o man with h/o ETOH dependence and no medical care who presented with R hip pain after trauma , he was found to have R intertrochanteric Fx . # POD #4 s/p right hip ORIF for R intertrochanteric Fx, post trauma. S/p IM gamma nail . pain control , Chemical DVT Px if plt > 80 , PT # ETOH withdrawal , cont folic and thiamine ,librium protocol completed # Transaminitis: improving , from alcohol toxicity. # Hyphophosph. repleted. # Thrombocytopenia: likely due to BM suppression form alcohol use. monitor . hold off heparin. # Suggestive findings of appendicitis on CT: no GI signs or symptoms. will f/u with surgery and GI as out pt DVT Px: Platelets are 118K,improved from 65K , SCDs for now ,will monitor Visit type - Emergency Visit Emergency Visit: No - New Patient This patient is new to me today: No - Critical Care Critical Care patient: No - Discharge Referral Referred to [facility] Med P.C.: No
[2018-03-14 07:04] LABS: BASO % 0.8 % (0-2.0); EOS % 3.7 % (0-4.5); HEMATOCRIT 27.9 % (35.4-49); HEMOGLOBIN 9.8 GM/dL (11.7-16.9); LYMPH % 18.8 % (8-40); MCH 36.5 pg (25.7-33.7); MCHC 35.3 g/dl (32.0-35.9); MEAN CELL VOLUME 103.4 fl (80-96); MEAN PLT VOLUME 7.6 fl (7.5-11.1); NEUT % 58.7 % (42.8-82.8); PLATELET COUNT 137 K/MM3 (134-434); RBC 2.69 M/mm3 (4.00-5.60); RDW 13.4 % (11.9-15.9); WHITE BLOOD COUNT 4.1 K/mm3 (4.0-10.0)
[2018-03-14 07:24] LABS: ALBUMIN 1.9 g/dl (3.4-5.0); ANION GAP 5 (8-16); BILIRUBIN,TOTAL 2.7 mg/dL (0.2-1.0); BLOOD UREA NITROGEN 8 mg/dL (7-18); CALCIUM 7.4 mg/dL (8.5-10.1); CHLORIDE 107 mmol/L (98-107); CO2 26 mmol/L (21-32); CREATININE 0.5 mg/dL (0.7-1.3); GLUCOSE,RANDOM 90 mg/dL (74-106); MAGNESIUM 1.9 mg/dL (1.8-2.4); PHOSPHOROUS 3.3 mg/dL (2.5-4.9); POTASSIUM 3.9 mmol/L (3.5-5.1); SGOT/AST 68 U/L (15-37); SGPT/ALT 29 U/L (12-78); SODIUM 138 mmol/L (136-145); TOT PROT 6.9 g/dl (6.4-8.2)
[2018-03-14 07:25] LABS: ALK PHOS 82 U/L (45-117)
[2018-03-14 07:28] LABS: BILIRUBIN,DIRECT 1.2 mg/dL (0.0-0.2)
--- NOTE | 2018-03-14 08:30 | PN ---
Progress Note (short form) - Note Progress Note: Ortho Pt seen and examined s/p right IM gamma. Pt had fall 1 day ago. States that he did not injure hip/ hit his head Selected Entries 03/14/18 04:27 Temperature 98.5 F Pulse Rate 79 Respiratory 19 Rate Blood Pressure 100/63 Laboratory Tests 03/14/18 06:47 WBC 4.1 Hgb 9.8 L Hct 27.9 L Plt Count 137 dressing with slight saturation, calf soft, nt nvi a/p PT wbat dvt ppx pain control d/c planning
[2018-03-14] MEDS: morphine SULFATE 4 MG/ML VIAL IVPUSH PRN (08:48)
[2018-03-14] MEDS: FOLIC ACID 1 MG TABLET (FP) PO SCH (09:33)
[2018-03-14] MEDS: THIAMINE HCL 100 MG TABLET (FP) PO SCH (09:33)
[2018-03-14] MEDS: ACETAMINOPHEN 500 MG TABLET (FP) PO PRN (11:20)
--- NOTE | 2018-03-14 16:44 | PN ---
<Gaby Reese - Last Filed: 03/14/18 17:22> Physical Exam: SUBJECTIVE: Patient seen and examined at bedside. Gauze changed last night. No acute events. Today, pt c/o watery discharge from eyes b/l however states that it is likely allergic. States he has decreased soreness today in RLE. Denies JOHNST[place] , fever, chills, SOB, or changes in urinary or bowel function. Pending insurance authorization, have discussed with SW. OBJECTIVE: Vital Signs Period Temp Pulse Resp BP Sys/[place] Pulse Ox Last 24 Hr 98.1 F-99.4 F 79-104 17-21 96-119/53-89 97-99 GENERAL: The patient is awake, alert, and fully oriented, in no acute distress. HEAD: Normal with no signs of trauma. EYES: PERRL, extraocular movements intact, sclera anicteric, conjunctiva clear. No ptosis. +with mild serous d/c b/l ENT: Ears normal, nares patent, oropharynx clear without exudates, moist mucous membranes. NECK: Trachea midline, supple. LUNGS: Breath sounds equal, clear to auscultation bilaterally, no wheezes, no crackles, no accessory muscle use. HEART: Regular rate and rhythm, S1, S2 without murmur, rub or gallop. ABDOMEN: Soft, nontender, nondistended, normoactive bowel sounds, no guarding, no rebound EXTREMITIES: 2+ posterior tibial pulses, warm, well-perfused, no edema. +RLE gauze- without drainage, healing well NEUROLOGICAL: Cranial nerves II through XII grossly intact. Normal speech PSYCH: Normal mood, normal affect. SKIN: Warm, dry, normal turgor Laboratory Results - last 24 hr 03/14/18 03/14/18 06:47 06:47 WBC 4.1 RBC 2.69 L Hgb 9.8 L Hct 27.9 L MCV 103.4 H MCH 36.5 H MCHC 35.3 RDW 13.4 Plt Count 137 MPV 7.6 Neutrophils % 58.7 Lymphocytes % 18.8 D Monocytes % 18.0 H Eosinophils % 3.7 Basophils % 0.8 Sodium 138 Potassium 3.9 Chloride 107 Carbon Dioxide 26 Anion Gap 5 L BUN 8 D Creatinine 0.5 L D Creat Clearance w eGFR > 60 Random Glucose 90 D Calcium 7.4 L Phosphorus 3.3 D Magnesium 1.9 Total Bilirubin 2.7 H D Direct Bilirubin 1.2 H AST 68 H ALT 29 D Alkaline Phosphatase 82 Total Protein 6.9 Albumin 1.9 L Active Medications Generic Name Dose Route Start Last Admin Trade Name Ivanq PRN Reason Stop Dose Admin Acetaminophen 500 mg 03/11/18 14:01 03/14/18 11:20 Tylenol - PO 500 mg Q6H PRN Administration FEVER Artificial Tears 1 drop 03/13/18 11:03 Artificial Tears OU QID PRN DRY EYES Folic Acid 1 mg 03/07/18 16:30 03/14/18 09:33 Folic Acid - PO 1 mg DAILY KAYLEIGH Administration Thiamine HCl 100 mg 03/08/18 10:00 03/14/18 09:33 Vitamin B1 - PO 100 mg DAILY KAYLEIGH Administration ASSESSMENT/PLAN: 57 y/o M with chronic EtOH abuse, who presented to the ED after falling on his R hip. Pt was found to have an acute R femoral neck fx. #R displaced intertrochanteric fx after trauma - R IM gamma nail (PO Day 8) -Continuing to hold a/c after procedure d/w Dr appiah (continue DVT PPX: L SCD) - pt thrombocytopenia has improved 137k may be able to restart a/c if platelets stabilize no aspirin 81mg qd at this time -IVF has been d/c -Pain control: morphine 2mg IVP q4h PRN -Tylenol 500mg PO q6h PRN for fever/pain -Tolerating regular diet -continue work with PT #Incidental dilated appendix (1.2cm) w/o abdominal sx -no need for surgical intervention at this time -will need surgical and GI f/u on d/c -repeat imaging as outpatient #alcohol withdrawal -without current signs of withdrawal -continue to check Mg, Phosph -librium protocol complete (03/10) -continue thiamine 100mg PO qd, folic 1mg PO qd #transaminitis-resolving #macrocytic anemia - possibly 2/2 nutritional deficit from chronic alcohol abuse. resolved -folic acid, B12 level - WNL #thrombocytopenia 2/2 BM suppression from chronic alc abuse -continue to monitor; improved 137k -f/u CBC tomorrow -avoid hep SQ or aspirin for time being. continue SCD LLE #F/E/N IV NS 75 cc/hr Continue to monitor lytes regular diet #PPX DVT: L SCD no a/c d/t thrombocytopenia. Once level improves consistently. has improved to 137k (consistently improved level for 1-2 days) - a/c #Dispo post-op care d/c planning; pt for placement tomorrow - SNF , needs rehab. awaiting insurance authorization Visit type - Emergency Visit Emergency Visit: No - New Patient This patient is new to me today: No - Critical Care Critical Care patient: No <Delta Loomis - Last Filed: 03/14/18 18:44> Physical Exam: patient is comfortable , waiting for placement, authorization # from the insurance.
[2018-03-14] MEDS ORDERED: POLYETHYLENE GLYCOL 3350 119 GM BTL PO ONE (22:34)
[2018-03-14] MEDS ORDERED: DOCUSATE SODIUM 100 MG CAPSULE (FP) PO PRN (22:34)
[2018-03-15] MEDS ORDERED: INSULIN (LEVEMIR) 100 UNITS/ML UNITS SQ ONE (06:46)
[2018-03-15 07:23] LABS: EOS % 2.3 % (0-4.5); HEMATOCRIT 28.9 % (35.4-49); LYMPH % 17.6 % (8-40); MCH 36.2 pg (25.7-33.7); MCHC 34.5 g/dl (32.0-35.9); MEAN CELL VOLUME 104.8 fl (80-96); MONO % 16.6 % (3.8-10.2); NEUT % 62.5 % (42.8-82.8); PLATELET COUNT 161 K/MM3 (134-434); RBC 2.76 M/mm3 (4.00-5.60); WHITE BLOOD COUNT 4.3 K/mm3 (4.0-10.0)
[2018-03-15 07:50] LABS: CHLORIDE 108 mmol/L (98-107); POTASSIUM 4.2 mmol/L (3.5-5.1); SODIUM 139 mmol/L (136-145)
[2018-03-15 07:53] LABS: ANION GAP 5 (8-16); BLOOD UREA NITROGEN 8 mg/dL (7-18); CALCIUM 7.9 mg/dL (8.5-10.1); CO2 26 mmol/L (21-32); CREATININE 0.5 mg/dL (0.7-1.3); GLUCOSE,RANDOM 91 mg/dL (74-106)
--- NOTE | 2018-03-15 08:14 | PN ---
Physical Exam: SUBJECTIVE: Patient seen and examined at bedside. Yesterday, pt OOB with walker and two assist, 40 feet. For continued PT today, OOB. Overnight, pt with pain control for R hip soreness. RLE dressing without serosanguineous drainage. Today , pt states he feels well however c/o R eye discharge. Denies [place], fever, chills , SOB, chest or abdominal pain or changes in urinary or bowel function. Message left for SW, will discuss today for authorization OBJECTIVE: Vital Signs Period Temp Pulse Resp BP Sys/[place]anks Pulse Ox Last 24 Hr 98.1 F-98.7 F 82-90 17-19 96-107/53-69 99-99 GENERAL: The patient is awake, alert, and fully oriented, in no acute distress. HEAD: Normal with no signs of trauma. EYES: PERRL, extraocular movements intact, sclera anicteric, conjunctiva with clear d/c ENT: Ears normal, nares patent, oropharynx clear without exudates, moist mucous membranes. NECK: Trachea midline, supple. LUNGS: Breath sounds equal, clear to auscultation bilaterally, no wheezes, no crackles, no accessory muscle use. HEART: Regular rate and rhythm, S1, S2 without murmur, rub or gallop. ABDOMEN: Soft, nontender, nondistended, normoactive bowel sounds, no guarding, no rebound, no hepatosplenomegaly, no masses. EXTREMITIES: 2+ posterior tibial pulses, warm, well-perfused, no edema. +RLE gauze, incision clean without serosanguineous drainage. +bruise in R groin - without TTP. NEUROLOGICAL: Cranial nerves II through XII grossly intact. Normal speech PSYCH: Normal mood, normal affect. SKIN: Warm, dry, normal turgor, +bruise R groin Laboratory Results - last 24 hr 03/15/18 06:30 Sodium 139 Potassium 4.2 Chloride 108 H Carbon Dioxide 26 Anion Gap 5 L BUN 8 Creatinine 0.5 L Random Glucose 91 Calcium 7.9 L Active Medications Generic Name Dose Route Start Last Admin Trade Name Freq PRN Reason Stop Dose Admin Acetaminophen 500 mg 03/11/18 14:01 03/14/18 11:20 Tylenol - PO 500 mg Q6H PRN Administration FEVER Artificial Tears 1 drop 05/13/18 11:03 Artificial Tears OU QID PRN DRY EYES Docusate Sodium 100 mg 03/14/18 22:34 Colace - PO BID PRN CONSTIPATION Folic Acid 1 mg 03/07/18 16:30 03/14/18 09:33 Folic Acid - PO 1 mg DAILY KAYLEIGH Administration Thiamine HCl 100 mg 03/08/18 10:00 03/14/18 09:33 Vitamin B1 - PO 100 mg DAILY KAYLEIGH Administration ASSESSMENT/PLAN: 57 y/o M with chronic EtOH abuse, who presented to the ED after falling on his R hip. Pt was found to have an acute R femoral neck fx. #R displaced intertrochanteric fx after trauma - R IM gamma nail (PO Day 9) -Continuing to hold a/c after procedure d/w Dr appiah (continue DVT PPX: L SCD) - pt thrombocytopenia has improved 161k - received dose of lovenox 40mg SQ x 1. no aspirin 81mg qd at this time -IVF has been d/c -Pain control: morphine 2mg IVP q4h PRN -Tylenol 500mg PO q6h PRN for fever/pain -Tolerating regular diet -continue work with PT #Incidental dilated appendix (1.2cm) w/o abdominal sx -no need for surgical intervention at this time -will need surgical and GI f/u on d/c -repeat imaging as outpatient #alcohol withdrawal -without current signs of withdrawal -continue to check Mg, Phosph -librium protocol complete (03/10) -continue thiamine 100mg PO qd, folic 1mg PO qd #transaminitis-resolving #macrocytic anemia - possibly 2/2 nutritional deficit from chronic alcohol abuse. resolved -folic acid, B12 level - WNL #thrombocytopenia 2/2 BM suppression from chronic alc abuse -continue to monitor; improved 137k -f/u CBC -avoid hep SQ or aspirin for time being. continue SCD LLE #F/E/N IV NS 75 cc/hr Continue to monitor lytes regular diet #PPX DVT: L SCD initially was not on a/c d/t thrombocytopenia. level improved to 161k - consistent level for 2-3 days, received dose of lovenox 40mg SQ x 1 for ppx. #Dispo post-op care d/c planning; pt for placement - SNF , needs rehab. awaiting insurance authorization Visit type - Emergency Visit Emergency Visit: No - New Patient This patient is new to me today: No - Critical Care Critical Care patient: No
--- NOTE | 2018-03-15 09:38 | PN ---
Teaching Attending Note Name of Resident: Gaby Reese ATTENDING PHYSICIAN STATEMENT I saw and evaluated the patient. I reviewed the resident's note and discussed the case with the resident. I agree with the resident's findings and plan as documented. SUBJECTIVE: Patient is comfortable with no acute distress, no shortness of breath, no nausea or vomiting. mo headache. OBJECTIVE: Vital Signs Temperature 98.7 F 03/15/18 05:11 Pulse Rate 83 03/15/18 05:11 Respiratory Rate 19 03/15/18 05:11 Blood Pressure 107/69 03/15/18 05:11 O2 Sat by Pulse Oximetry (%) 99 03/14/18 21:00 GENERAL: The patient is awake, alert, and fully oriented, in no acute distress. Sitting in bed HEAD: Normal with no signs of trauma. EYES: PERRL, extraocular movements intact, sclera anicteric ENT: Ears normal, oropharynx clear without exudates, moist mucous membranes. NECK: Trachea midline, supple. LUNGS: Breath sounds equal, clear to auscultation bilaterally, no wheezes, no crackles, no accessory muscle use. HEART: Regular rate and rhythm, S1, S2 without murmur, rub or gallop. ABDOMEN: Soft, nontender, nondistended, normoactive bowel sounds, no guarding, no rebound, no masses. EXTREMITIES: 2+ posterior tibial pulses, warm, well-perfused, no edema. Right hip sx, positive for luís. NEUROLOGICAL: Cranial nerves II through XII grossly intact. Normal speech. PSYCH: Normal mood, normal affect. SKIN: Warm, dry, normal turgor CBCD WBC 4.3 K/mm3 (4.0-10.0) 03/15/18 06:30 RBC 2.76 M/mm3 (4.00-5.60) L 03/15/18 06:30 Hgb 10.0 GM/dL (11.7-16.9) L 03/15/18 06:30 Hct 28.9 % (35.4-49) L 03/15/18 06:30 MCV 104.8 fl (80-96) H 03/15/18 06:30 MCHC 34.5 g/dl (32.0-35.9) 03/15/18 06:30 RDW 14.0 % (11.9-15.9) 03/15/18 06:30 Plt Count 161 K/MM3 (134-434) 03/15/18 06:30 MPV 8.0 fl (7.5-11.1) 03/15/18 06:30 CMP Sodium 139 mmol/L (136-145) 03/15/18 06:30 Potassium 4.2 mmol/L (3.5-5.1) 03/15/18 06:30 Chloride 108 mmol/L (98-107) H 03/15/18 06:30 Carbon Dioxide 26 mmol/L (21-32) 03/15/18 06:30 Anion Gap 5 (8-16) L 03/15/18 06:30 BUN 8 mg/dL (7-18) 03/15/18 06:30 Creatinine 0.5 mg/dL (0.7-1.3) L 03/15/18 06:30 Creat Clearance w eGFR > 60 (>60) 03/14/18 06:47 Random Glucose 91 mg/dL (74-106) 03/15/18 06:30 Calcium 7.9 mg/dL (8.5-10.1) L 03/15/18 06:30 Total Bilirubin 2.7 mg/dL (0.2-1.0) H D 03/14/18 06:47 AST 68 U/L (15-37) H 03/14/18 06:47 ALT 29 U/L (12-78) D 03/14/18 06:47 Alkaline Phosphatase 82 U/L (45-117) 03/14/18 06:47 Total Protein 6.9 g/dl (6.4-8.2) 03/14/18 06:47 Albumin 1.9 g/dl (3.4-5.0) L 03/14/18 06:47 Current Medications Generic Name Dose Route Start Last Admin Trade Name Freq PRN Reason Stop Dose Admin Acetaminophen 500 mg 03/11/18 14:01 03/14/18 11:20 Tylenol - PO 500 mg Q6H PRN Administration FEVER Artificial Tears 1 drop 03/13/18 11:03 Artificial Tears OU QID PRN DRY EYES Docusate Sodium 100 mg 03/14/18 22:34 Colace - PO BID PRN CONSTIPATION Folic Acid 1 mg 03/07/18 16:30 03/14/18 09:33 Folic Acid - PO 1 mg DAILY KAYLEIGH Administration Thiamine HCl 100 mg 03/08/18 10:00 03/14/18 09:33 Vitamin B1 - PO 100 mg DAILY KAYLEIGH Administration Home Medications Medication Instructions Recorded NK [No Known Home Medication] 03/06/18 ASSESSMENT AND PLAN: 57 y/o man with h/o ETOH dependence and no medical care who presented with R hip pain after trauma , he was found to have R intertrochanteric Fx . # POD #6 s/p right hip ORIF for R intertrochanteric Fx, post trauma. S/p IM gamma nail . pain control , we can anticoagulate the patient now since his Platelets above 100K, will start him on Lovenox 40mg daily . Follow with in a week period for stables removal. # ETOH withdrawal , cont folic and thiamine ,librium protocol completed , [facility] # Transaminitis: improved was due to alcohol toxicity. # Hyphophosph. repleted. Level improved. # Thrombocytopenia: improved post abstinence . # Suggestive findings of appendicitis on CT: no GI signs or symptoms. will f/u with surgery and GI as out pt DVT Px: Platelets are 161k improved from 65K , will start him on Lovenox and continue SCDs
[2018-03-15 10:22] VITALS: BP 111/68; PULSE 84; TEMP 98.5
[2018-03-15] MEDS: ACETAMINOPHEN 500 MG TABLET (FP) PO PRN (10:22)
[2018-03-15] MEDS: FOLIC ACID 1 MG TABLET (FP) PO SCH (10:22)
[2018-03-15] MEDS: THIAMINE HCL 100 MG TABLET (FP) PO SCH (10:22)
[2018-03-15] MEDS ORDERED: ENOXAPARIN NA (PORCINE) 40 MG/0.4 ML DISP.SYRIN SQ ONE (11:05)
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
== END 2018-03-15 14:14 | DRG 210 ==
LOC: JER 02:50 → JERBED 06:06 → J8W 13:06 → J6S 03-07 18:35
PROVIDERS: ADMIT Internal Medicine; ATTEND Internal Medicine
PROC: 0QH606Z Insertion of Intramedullary Internal Fixation Device into Right Upper Femur, Open Approach (ICD-10-PCS; principal; 2018-03-07 11:30)
DX: S72.141A Displaced intertrochanteric fracture of right femur, initial encounter for closed fracture (principal); F10.220 Alcohol dependence with intoxication, uncomplicated; D69.6 Thrombocytopenia, unspecified; F10.230 Alcohol dependence with withdrawal, uncomplicated; E83.42 Hypomagnesemia; K38.0 Hyperplasia of appendix; S50.01XA Contusion of right elbow, initial encounter; D53.9 Nutritional anemia, unspecified; E83.39 Other disorders of phosphorus metabolism; W18.09XA Striking against other object with subsequent fall, initial encounter; Y93.89 Activity, other specified; Y92.89 Other specified places as the place of occurrence of the external cause; Y99.8 Other external cause status; R74.0 Nonspecific elevation of levels of transaminase and lactic acid dehydrogenase [LDH]
CPT/HCPCS: 36415; 70450-TC; 71045-TC-FY; 72192-TC; 73070-TC-RT-FY; 73502-TC-RT; 73523-TC-FY; 76000-TC-FY; 76705-TC; 80048; 80053; 80307; 82248; 82607; 82746; 83735; 84100; 85025; 85027; 85610; 86850; 86900; 86901; 87389; 93005; 93010; 94760; 97116-GP; 97161-GP; 99284-25; J1644; J7030